=== PATIENT | male | born 1955 | race Caucasian/White ===

== ENCOUNTER → 2021-03-13 | Outpatient (CLI) | payer OTHER ==
--- NOTE | 2021-03-13 10:06 | 2DMMODE ---
[facility] [place] [address] 2 D/M-MODE ECHOCARDIOGRAM Name: DALLAS ASH Room #: REG ALVARO Salmeron.#: [id number] Admission: 03/13/21 Attend Phys: Gilberto William MD Discharge: Date of : 53 Report #: [id number] THIS REPORT FOR: cc: CHERELLE SELLERS Physician not on staff Dagoberto Smith MD [facility] ~ APPROVED REPORT Study performed: 03/13/2021 08:40:32 EXAM: Comprehensive 2D, Doppler, and color-flow Echocardiogram Patient Location: Out-Patient Status: routine BSA: 2.20 HR: 125 bpm BP: 120/85 mmHg Rhythm: Atrial Fibrillation Other Information Study Quality: Good Indications Colon Cancer. Chemo Hx: Afib. Heart rate ranged from 110-150s during exam. 2D Dimensions RVDd: 41.44 mm IVSd: 12.22 (7-11mm) LVOT Diam: 21.72 (18-24mm) LVDd: 57.23 mm PWd: 12.82 (7-11mm) LVDs: 48.30 (25-40mm) Left Atrium: 54.69 (27-40mm) Aortic Root: 34.19 mm Volumes Left Atrial Volume (Systole) Single Plane 4CH: 119.80 mL Single Plane 2CH: 83.96 mL LA ESV Index: 50.00 mL/m2 Aortic Valve AoV Peak Chance.: 1.62 m/s AO Peak Gr.: 10.43 mmHg LVOT Max P.59 mmHg LVOT Max V: 0.80 m/s [facility] [address] [place] [address] 2 D/M-MODE ECHOCARDIOGRAM Name: DALLAS ASH Room #: REG CL Monica#: [id number] Admission: 03/13/21 Attend Phys: Elio Montano Discharge: Date of : 53 Report #: [id number] [id number] Vmax: 1.84 cm2 Mitral Valve MV Decel. Time: 202.73 ms MV E Max Chance.: 0.88 m/s Pulmonary Valve PV Peak Chance.: 0.89 m/s PV Peak Gr.: 3.19 mmHg Tricuspid Valve TR Peak Chance.: 2.89 m/s RAP Estimate: 10.00 mmHg TR Peak Gr.: 34.04 mmHg PA Pressure: 44.00 mmHg Left Ventricle The left ventricle is normal size. Mild concentric left ventricular hypertrophy. Left ventricular systolic function is mild to moderately decreased. Assessment is limited by the presence of atrial fibrillation with a rapid ventricular response. LVEF 40-45%. This study is not technically sufficient to allow evaluation of the LV diastolic function due to atrial fibrillation. Right Ventricle The right ventricle is normal size. The right ventricular systolic function is normal. Atria Left atrium is moderately dilated. PFO suggested. Right atrium is moderately dilated. Aortic Valve The aortic valve is normal in structure. No aortic regurgitation is present. There is no aortic valvular stenosis. Mitral Valve The mitral valve is normal in structure. Mild to moderate mitral regurgitation. No evidence of mitral valve stenosis. Tricuspid Valve The tricuspid valve is normal in structure. Mild to moderate tricuspid regurgitation. Estimated PAP is 40-45mmHg. Pulmonic Valve The pulmonary valve is normal in structure. Trace pulmonic regurgitation. [facility] [address] [place] [address] 2 D/M-MODE ECHOCARDIOGRAM Name: DALLAS ASH Room #: REG [facility].#: [id number] Admission: 03/13/21 Attend Phys: Elio Montano Discharge: Date of : 53 Report #: [id number] Great Vessels The aortic root is normal in size. IVC is dilated and collapses <50% with inspiration. Pericardium There is no pericardial effusion. <Conclusion> Left ventricular systolic function is mild to moderately decreased. Assessment is limited by the presence of atrial fibrillation with a rapid ventricular response. LVEF 45%. Both atria are moderately dilated. PFO suggested. The aortic valve is normal in structure. No aortic regurgitation or stenosis. The mitral valve is normal in structure. Mild to moderate mitral regurgitation. Mild to moderate tricuspid regurgitation. Estimated pulmonary artery pressure of 40-45mmHg. There is no pericardial effusion. <ELECTRONICALLY SIGNED> By: Dagoberto Smith MD, [facility] 03/13/21 1005 04 Dagoberto Smith MD, [facility] /INF
[2021-03-13 10:54] LABS: ALBUMIN 2.5 g/dL (3.4-5.0); CALCIUM 8.3 mg/dL (8.5-10.1); CREATININE 0.9 mg/dL (0.7-1.3); POTASSIUM 4.1 mmol/L (3.5-5.1); TOTAL BILIRUBIN 0.5 mg/dL (0.2-1.0)
== END ==
LOC: CV 08:06
PROVIDERS: ATTEND Internal Medicine Hematology & Oncology
DX: C18.9 Malignant neoplasm of colon, unspecified (principal); K76.9 Liver disease, unspecified; R91.8 Other nonspecific abnormal finding of lung field; I08.1 Rheumatic disorders of both mitral and tricuspid valves